=== PATIENT | female | born 1990 | race Caucasian/White ===

== ENCOUNTER 2018-05-03 13:51 | Outpatient (CLI) | payer OTHER ==
--- NOTE | 2018-05-04 17:17 | MRI Report ---
Reason: PAIN IN RIGHT WRIST Procedure Date: 05/03/2018 Accession Number: [id number] / [id number] Procedure: MRI - Wrist RT W/O CPT Code: FULL RESULT: EXAM: RIGHT WRIST MRI WITHOUT CONTRAST EXAM DATE: 05/03/2018 03:17 PM. CLINICAL HISTORY: Pain in right wrist. COMPARISON: None. TECHNIQUE: Multiplanar, multisequence T1-weighted and fluid-sensitive sequences of the wrist without contrast. Other: None. FINDINGS: Bones: Negative ulnar variance by approximately 3.5-4 mm. No acute fracture or bone lesion. No osteonecrosis. Cartilage: The articular cartilage is unremarkable. The triangular fibrocartilage complex is unremarkable. Ligaments: The scapholunate and lunotriquetral ligaments are intact. The visualized other intrinsic, extrinsic and collateral ligaments are unremarkable. Tendons: Minimal extensor carpi radialis longus and brevis and extensor digitorum tenosynovitis. Otherwise, the extensor compartment I through and flexor tendons are unremarkable. Musculature: No edema or fatty atrophy. Other: The contents of the carpal tunnel, including the median nerve, are unremarkable. Guyons canal is unremarkable. There is an approximately 9 x 2 x 3 mm ganglion or synovial cyst dorsal to the yvxcmstr-qegasqkn-skhvah joint. There is an approximately 7 x 3 x 1 mm ganglion or synovial cyst volar to the scapholunate joint. No joint effusions. The subcutaneous tissues are unremarkable. IMPRESSION: 1. Minimal extensor carpi radialis longus and brevis and extensor digitorum tenosynovitis. No tendon tear. 2. Negative ulnar variance by approximately 3.5-4 mm. 3. Ganglion or synovial cysts dorsal to the xajotqrn-ryebasaw-vgfyyo joint and volar to the scapholunate joint. RADIA MUSCULOSKELETAL RADIOLOGY SECTION
== END 2018-05-03 13:52 | disposition home or self-care (01) ==
LOC: DI 13:51
PROVIDERS: ATTEND Student in an Organized Health Care Education/Training Program
DX: M65.88 Other synovitis and tenosynovitis, other site (principal); M25.831 Other specified joint disorders, right wrist